=== PATIENT | female | born 1945 | race Caucasian/White ===

== ENCOUNTER 2017-01-31 09:07 | Emergency (ER) | payer OTHER ==
[2017-01-31] MEDS ORDERED: NS 1,000 ML IV ONE (09:31)
[2017-01-31] MEDS ORDERED: ONDANSETRON 4 MG/2 ML VIAL IVP ONE (09:31)
[2017-01-31] MEDS ORDERED: ONDANSETRON 4 MG/2 ML VIAL ONE (09:43)
[2017-01-31 09:53] LABS: COLOR YELLOW; LEUKOCYTE ESTERASE,URINE 1+ (NEGATIVE); NITRITE,URINE NEGATIVE (NEGATIVE)
[2017-01-31 09:56] LABS: MUCUS TRACE /lpf (NONE-1+)
[2017-01-31 09:58] LABS: % IMMATURE GRANULYOCYTES 0.3 % (0.0-1.1); ABSOLUTE IMMATURE GRANULOCYTES 0.05 10^3/uL (0.00-0.10); ADD DIFF? NO; ADD MORPH? NO; ADD SCAN? NO; ATYPICAL LYMPHOCYTE FLAG 20 (0-99); FRAGMENT RBC FLAG 0 (0-99); HEMATOCRIT 46.8 % (38.0-47.0); HEMOGLOBIN 16.4 g/dL (12.6-16.3); LEFT SHIFT FLG 10 (0-99); LIPEMIA HEMOLYSIS FLAG 90 (0-99); MEAN CELL HEMOGLOBIN 32.4 pg (27.9-34.1); MEAN CELL VOLUME 92.5 fL (81.5-99.8); MEAN PLATELET VOLUME 8.9 fL (8.7-11.7); PLATELET CLUMPS FLAG 10 (0-99); PLATELET COUNT 242 10^3/uL (150-400); RED BLOOD CELL COUNT 5.06 10^6/uL (4.18-5.33)
--- NOTE | 2017-01-31 10:20 | EDPHY ---
H & P Stated Complaint: Abd pain x 1 wk;lab yesterday w/elevated WBC; sent for CT HPI/ROS: CHIEF COMPLAINT: Abdominal pain HISTORY OF PRESENT ILLNESS: Patient complains of 1 week history of abdominal pain. This started in the epigastrium and has now settled in the lower abdomen. Moderate to severe pain. Colicky pain. Does not radiate. Some nausea and anorexia. No vomiting. No diarrhea constipation. No flank pain. No fever chills. Laboratory studies drawn yesterday by her primary care physician returned today. She was contacted by the PA Sammi Martines and instructed to come to the emergency department due to leukocytosis and the recommendation of CT scan. She has a history of diverticulosis but not diverticulitis. No other associated complaints or modifying factors. PREVIOUS ABDOMINAL SURGERIES/DIAGNOSES: Diverticulosis, UTIs NPO: Last night REVIEW OF SYSTEMS: Ten systems reviewed and are negative unless otherwise noted in the HPI EXAMINATION: General Appearance: Alert, no distress Head: normocephalic, atraumatic Eyes: Pupils equal and round, no conjunctival pallor or injection ENT, Mouth: Mucous membranes moist. Uvula midline. Neck: Normal inspection, supple, non-tender Respiratory: Lungs are clear to auscultation Cardiovascular: Regular rate and rhythm Gastrointestinal: Obese abdomen. Tenderness in the lower quadrants. No point tenderness. No tympany. No rigidity. Non-acute abdomen. Back: non-tender, no bony abnormalities Neurological: A&O, nonfocal, normal gait Skin: Warm and dry, no rash Extremities: Nontender, no pedal edema Psychiatric: Mood and affect normal DIFFERENTIAL DIAGNOSES: Including but not limited to gastritis, diverticulitis, colitis, appendicitis, cystitis, UTI, diverticulosis, mesenteric adenitis MDM: 9:34 a.m. Lower abdominal pain with guarding in the suprapubic region. She had laboratory studies drawn yesterday for her week-long pain with leukocytosis. Her PA from her primary care office sent her here for CT scan. She reports an allergy to IV contrast, thus I ordered this without contrast. Vital signs are stable. 10:29 a.m. Notified by radiologist Dr. Heath. There is acute diverticulitis without perforation or abscess. No other acute findings other than degenerative arthritic changes of the right hip. 10:38 a.m. I discussed the findings with the patient. She is feeling much better at this time. I also discussed the findings with the patient's PA, Sammi Martines. She informed me that she actually had instructed the patient to present to the Imaging Department and not the emergency department. She informed that she would be happy to follow up on the patient tomorrow and arrange for her to be seen on Thursday in the clinic. 10:45 a.m. She remains vital signs stable and afebrile. We discussed admission the hospital for IV antibiotics versus discharge home. She wants to be discharged home. I do feel she is stable for discharge home with outpatient management. We discussed the risks and benefits, including the possibility of failure of outpatient management. She is comfortable with this risk and discharged home stable condition. 11:15 a.m. After printing discharge medications, RN notified me that the patient was not comfortable taking Cipro. I discussed this with the patient and she expressed that due to the research she has done in the medical literature she did not want to take the ciprofloxacin. I informed her that we could choose the second- line therapy for her. We discussed the risks and benefits of doing so, including the risk of palpation failure. We she is comfortable with him these risks, and I switched her prescription to Augmentin ER 1000 mg twice daily for 10 days. ED Precautions: Worsening pain. Fever. Bloody stools. Bloody emesis. Constipation or diarrhea. SUPERVISION: This patient was independently evaluated without direct examination by the attending physician. Case was discussed with attending physician. Case discussed with Dr. Ahumada Source: Patient, Old records Exam Limitations: No limitations - Personal History Current Tetanus Diphtheria and Acellular Pertussis (TDAP): Yes - Medical/Surgical History Other PMH: HTN. DANE. arthritis. diverticulitis - Social History Smoking Status: Never smoked Constitutional: Initial Vital Signs Temperature (C) 99.1 F 01/31/17 09:10 Heart Rate 79 01/31/17 09:10 Respiratory Rate 18 01/31/17 09:10 Blood Pressure 159/72 H 01/31/17 09:10 O2 Sat (%) 95 01/31/17 09:10 O2 Delivery Mode Room Air Allergies/Adverse Reactions: Iodine and Iodide Containing Produc Allergy (Verified 01/31/17 10:03) Home Medications: Medication Instructions Recorded Acyclovir [Zovirax 400 mg (*)] 400 mg PO BID 01/31/17 Amox Tr/Potassium Clavulanate 1 each PO BID #20 tab 01/31/17 [Augmentin 1000MG ER Tablet (*)] Ciprofloxacin [Cipro] 500 mg PO BID #20 tab 01/31/17 Fluconazole 150 mg PO AD PRN #2 tablet 01/31/17 Losartan Potassium [Cozaar 50 mg 50 mg PO 01/31/17 (*)] Naturethroid 01/31/17 metroNIDAZOLE [Flagyl 500 mg (*)] 500 mg PO BID #20 tab 01/31/17 traMADol [Ultram 50 mg (*)] 50 mg PO Q4 PRN #15 tab 01/31/17 Medical Decision Making - Diagnostics Imaging Results: Imaging Impressions Abdomen/Pelvis CT 01/31/17 09:32 Impression: 1. Diverticulitis mid sigmoid colon without evidence of peridiverticular abscess. 2. Bands of subsegmental atelectasis versus fibrotic streaks at the left base. 3. Incidental small cyst right lobe liver inferolaterally. 4. Moderate to marked degenerative changes right hip. Findings discussed with Reji Mosquera PAC at 10:29 hour, 01/31/2017. - Data Points Laboratory Results: Laboratory Results 01/31/17 09:50 01/31/17 09:50 01/31/17 01/31/17 01/31/17 09:50 09:50 09:35 WBC 15.45 10^3/uL H 10^3/uL (3.80-9.50) RBC 5.06 10^6/uL 10^6/uL (4.18-5.33) Hgb 16.4 g/dL H g/dL (12.6-16.3) Hct 46.8 % % (38.0-47.0) MCV 92.5 fL fL (81.5-99.8) MCH 32.4 pg pg (27.9-34.1) MCHC 35.0 g/dL g/dL (32.4-36.7) RDW 12.0 % % (11.5-15.2) Plt Count 242 10^3/uL 10^3/uL (150-400) MPV 8.9 fL fL (8.7-11.7) Neut % (Auto) 77.4 % H % (39.3-74.2) Lymph % (Auto) 15.1 % % (15.0-45.0) [place] % (Auto) 6.7 % % (4.5-13.0) Eos % (Auto) 0.2 % L % (0.6-7.6) Baso % (Auto) 0.3 % % (0.3-1.7) Nucleat RBC Rel Count 0.0 % % (0.0-0.2) Absolute Neuts (auto) 11.97 10^3/uL H 10^3/uL (1.70-6.50) Absolute Lymphs (auto) 2.33 10^3/uL 10^3/uL (1.00-3.00) Absolute Monos (auto) 1.03 10^3/uL H 10^3/uL (0.30-0.80) Absolute Eos (auto) 0.03 10^3/uL 10^3/uL (0.03-0.40) Absolute Basos (auto) 0.04 10^3/uL 10^3/uL (0.02-0.10) Absolute Nucleated RBC 0.00 10^3/uL 10^3/uL (0-0.01) Immature Gran % 0.3 % % (0.0-1.1) Immature Gran # 0.05 10^3/uL 10^3/uL (0.00-0.10) Sodium 139 mEq/L mEq/L (134-144) Potassium 4.3 mEq/L mEq/L (3.5-5.2) Chloride 103 mEq/L mEq/L (97-110) Carbon Dioxide 24 mEq/l mEq/l (22-31) Anion Gap 12 mEq/L mEq/L (8-16) BUN 15 mg/dL mg/dL (7-23) Creatinine 0.8 mg/dL mg/dL (0.6-1.0) Estimated GFR > 60 Glucose 137 mg/dL H mg/dL (70-100) Calcium 9.4 mg/dL mg/dL (8.5-10.4) Lipase 45.0 IU/L IU/L (23-300) Urine Color YELLOW Urine Appearance HAZY Urine pH 7.0 (5.0-7.5) Ur Specific [place] 1.020 (1.002-1.030) Urine Protein NEGATIVE (NEGATIVE) Urine Ketones NEGATIVE (NEGATIVE) Urine Blood NEGATIVE (NEGATIVE) Urine Nitrate NEGATIVE (NEGATIVE) Urine Bilirubin NEGATIVE (NEGATIVE) Urine Urobilinogen NEGATIVE EU EU (0.2-1.0) Ur Leukocyte Esterase 1+ H (NEGATIVE) Urine RBC 1-3 /hpf /hpf (0-3) Urine WBC 5-10 /hpf H /hpf (0-3) Ur Epithelial Cells TRACE /lpf /lpf (NONE-1+) Urine Mucus TRACE /lpf /lpf (NONE-1+) Urine Glucose NEGATIVE (NEGATIVE) Medications Given: Discontinued Medications Sodium Chloride (Ns) 1,000 mls @ 0 mls/hr IV ONCE ONE PRN Reason: Wide Open Stop: 01/31/17 09:32 Last Admin: 01/31/17 09:31 Dose: 1,000 mls Morphine Sulfate (Morphine) 4 mg IVP EDNOW ONE Stop: 01/31/17 09:32 Last Admin: 01/31/17 09:41 Dose: Not Given Ondansetron HCl (Zofran) 4 mg IVP EDNOW ONE Stop: 01/31/17 09:32 Last Admin: 01/31/17 09:31 Dose: 4 mg Departure - Departure Disposition: Home, Routine, Self-Care Clinical Impression: Sigmoid diverticulitis Abdominal pain Qualifiers: Abdominal location: lower abdomen, unspecified Qualified Code(s): R10.30 - Lower abdominal pain, unspecified Leukocytosis Qualifiers: Leukocytosis type: unspecified Qualified Code(s): D72.829 - Elevated white blood cell count, unspecified Condition: Good Instructions: Diverticulitis (ED), Diverticulitis Diet (ED) Additional Instructions: 1. Antibiotics as discussed 2. Pain medication as needed as discussed 3. Follow up with primary care physician on Thursday 4. Return to the ER for worsening pain, fever, bloody stools or vomiting Referrals: Sammi Martines NP [Primary Care Provider] - As per Instructions Prescriptions: Amox Tr/Potassium Clavulanate [Augmentin 1000MG ER Tablet (*)] 1 each PO BID # 20 tab Ciprofloxacin [Cipro] 500 mg PO BID #20 tab Fluconazole 150 mg PO AD PRN #2 tablet PRN Reason: Itching metroNIDAZOLE [Flagyl 500 mg (*)] 500 mg PO BID #20 tab traMADol [Ultram 50 mg (*)] 50 mg PO Q4 PRN #15 tab PRN Reason: Pain, Mild
[2017-01-31 10:23] LABS: ANION GAP 12 mEq/L (8-16); CALCIUM 9.4 mg/dL (8.5-10.4); CARBON DIOXIDE 24 mEq/l (22-31); CHLORIDE 103 mEq/L (97-110); CREATININE 0.8 mg/dL (0.6-1.0); GLOMERULAR FILTRATION RATE > 60; GLUCOSE 137 mg/dL (70-100); POTASSIUM 4.3 mEq/L (3.5-5.2); SODIUM 139 mEq/L (134-144)
[2017-01-31 10:49] VITALS: BP 152/78; PULSE 78; RESP 16; TEMP 99.3; O2SAT 91
== END 2017-01-31 11:25 | disposition home or self-care (01) ==
DX: K57.32 Diverticulitis of large intestine without perforation or abscess without bleeding (principal); D72.829 Elevated white blood cell count, unspecified; I10 Essential (primary) hypertension
CPT/HCPCS: 74176; 96374; 99285; J2405

== ENCOUNTER → 2017-06-15 | Outpatient (CLI) | payer OTHER | LOC: FIMAGING 15:40 | PROVIDERS: ATTEND Family Medicine | DX: M25.551 Pain in right hip (principal); G89.29 Other chronic pain; M15.9 Polyosteoarthritis, unspecified ==

== ENCOUNTER 2017-11-07 12:19 | Inpatient (IN) | payer OTHER ==
[2017-11-07] MEDS ORDERED: NS 1,000 ML IV ONE (12:28)
[2017-11-07] MEDS ORDERED: methylPREDNISolone SOD SUCC 125 MG/2 ML VIAL IVP ONE ×2 (12:28→20:15)
[2017-11-07] MEDS ORDERED: RANITIDINE 50 MG/2 ML VIAL IVP ONE (12:28)
--- NOTE | 2017-11-07 12:30 | EDPHY ---
H & P Time Seen by Provider: 11/07/17 12:24 HPI/ROS: CHIEF COMPLAINT: Itchy and tongue swelling HISTORY OF PRESENT ILLNESS: Patient took 100 mg Celebrex this morning for chronic right hip pain. She also is on losartan for high blood pressure. At 11 :00 a.m. she noticed itching and both sides of her lower abdomen near the iliac crest. At noon she noticed her tongue swelling and presents with both symptoms. Symptoms moderate to severe. Not associated with abdominal pain or vomiting or wheezing. Not better worse with bending. REVIEW OF SYSTEMS: Eye: no change in vision ENT: Tongue swelling but no sore throat or dental pain Cardiac: no chest pain or syncope Pulmonary: no cough or SOB, no wheezing Abdomen: no vomiting, diarrhea, abdominal pain Musculoskeletal: no back pain Skin: Urticaria both sides of her lower abdomen Neuro: no headache Constitutional: no fever : no urinary symptoms A comprehensive 10 point review of systems is otherwise negative aside from elements mentioned in the history of present illness. PAST MEDICAL HISTORY: Includes asthma and hypertension, sleep apnea, arthritis. Social history: nonsmoker. General Appearance: Alert and conversant, cooperative. Eyes: No scleral icterus. ENT, Mouth: Angioedema with enlarged tongue but no stridor or drooling and no trismus. Respiratory: Normal respiratory effort, breath sounds equal, lungs are clear to auscultation. No wheezing. Cardiovascular: Regular rate and rhythm. Gastrointestinal: Abdomen is soft and non tender. Neurological: Alert, face symmetric, normal motor and sensory in extremities. Skin: Urticaria on both sides of the lower abdomen. Musculoskeletal: No peripheral edema. Psychiatric: Not agitated. Emergency Department course/MDM: Epi 0.3 mL IM, Solu-Medrol 125 mg IV, IV Benadryl 50 mg and IV H2 mick Differential includes but not limited to angioedema from losartan as well as allergic reaction and anaphylaxis. Patient had transient bradycardia down to 30, felt terrible. She had trouble opening her mouth and some stridor and difficulty speaking and was moved to the resuscitation room. Discussed with Viral in OR, asked to call Backup anesthesiologist, called Jose David 1240. 1304: Huey for ENT. 1318: John for Jose. 1400: No stridor or drooling, able to speak in complete sentences. At this point I do not think the patient needs acute surgical airway intervention. She is improving although still has quite swollen tongue. Will be admitted to the hospital for further observation of angioedema. Smoking Status: Never smoked Constitutional: Initial Vital Signs Temperature (C) 36.7 C 11/07/17 12:23 Heart Rate 77 11/07/17 12:23 Respiratory Rate 20 11/07/17 12:23 Blood Pressure 177/89 H 11/07/17 12:23 O2 Sat (%) 94 11/07/17 12:23 O2 Delivery Mode Room Air Allergies/Adverse Reactions: Iodine and Iodide Containing Produc Allergy (Verified 11/07/17 12:23) Home Medications: Medication Instructions Recorded Acyclovir [Zovirax 400 mg (*)] 400 mg PO BID 01/31/17 Fluconazole 150 mg PO AD PRN #2 tablet 01/31/17 Losartan Potassium [Cozaar 50 mg 50 mg PO 01/31/17 (*)] Naturethroid 01/31/17 metroNIDAZOLE [Flagyl 500 mg (*)] 500 mg PO BID #20 tab 01/31/17 traMADol [Ultram 50 mg (*)] 50 mg PO Q4 PRN #15 tab 01/31/17 Medical Decision Making - Diagnostics EKG Interpretation: 12-lead EKG interpreted by me; official reading is in trace master. My interpretation is sinus rhythm with left atrial abnormality rate 58 with late anterior RS, possible old anteroseptal infarct. Differential Diagnosis: Differential includes but not limited to ENT infection, angioedema, drug reaction, acute anaphylaxis. Critical Care Time: Critical care time spent by me, Dr. Navas, exclusively with the care of this patient was 35 minutes, exclusive of PA or EQUAL OPPORTUNITY COUNSELOR time and exclusive of separate procedures. The organ system at risk was airway and I ordered epinephrine, steroids, antihistamines, consultation with ENT and Anesthesiology, serial examinations and supplemental oxygen; to stabilize the patient and prevent worsening of the patient's condition. - Data Points Laboratory Results: Laboratory Results 11/07/17 12:20 11/07/17 12:20 11/07/17 11/07/17 12:20 12:20 WBC 12.73 10^3/uL H 10^3/uL (3.80-9.50) RBC 5.25 10^6/uL 10^6/uL (4.18-5.33) Hgb 17.6 g/dL H g/dL (12.6-16.3) Hct 49.7 % H % (38.0-47.0) MCV 94.7 fL fL (81.5-99.8) MCH 33.5 pg pg (27.9-34.1) MCHC 35.4 g/dL g/dL (32.4-36.7) RDW 12.2 % % (11.5-15.2) Plt Count 247 10^3/uL 10^3/uL (150-400) MPV 9.7 fL fL (8.7-11.7) Neut % (Auto) 62.2 % % (39.3-74.2) Lymph % (Auto) 29.7 % % (15.0-45.0) [place] % (Auto) 6.7 % % (4.5-13.0) Eos % (Auto) 0.8 % % (0.6-7.6) Baso % (Auto) 0.4 % % (0.3-1.7) Nucleat RBC Rel Count 0.0 % % (0.0-0.2) Absolute Neuts (auto) 7.92 10^3/uL H 10^3/uL (1.70-6.50) Absolute Lymphs (auto) 3.78 10^3/uL H 10^3/uL (1.00-3.00) Absolute Monos (auto) 0.85 10^3/uL H 10^3/uL (0.30-0.80) Absolute Eos (auto) 0.10 10^3/uL 10^3/uL (0.03-0.40) Absolute Basos (auto) 0.05 10^3/uL 10^3/uL (0.02-0.10) Absolute Nucleated RBC 0.00 10^3/uL 10^3/uL (0-0.01) Immature Gran % 0.2 % % (0.0-1.1) Immature Gran # 0.03 10^3/uL 10^3/uL (0.00-0.10) Sodium 140 mEq/L mEq/L (135-145) Potassium 4.6 mEq/L mEq/L (3.5-5.2) Chloride 104 mEq/L mEq/L (97-110) Carbon Dioxide 22 mEq/l mEq/l (22-31) Anion Gap 14 mEq/L mEq/L (8-16) BUN 20 mg/dL mg/dL (7-23) Creatinine 0.9 mg/dL mg/dL (0.6-1.0) Estimated GFR > 60 Glucose 111 mg/dL H mg/dL (70-100) Calcium 9.6 mg/dL mg/dL (8.5-10.4) Medications Given: Discontinued Medications Diphenhydramine HCl (Benadryl Injection) 50 mg IVP EDNOW ONE Stop: 11/07/17 12:29 Last Admin: 11/07/17 12:34 Dose: 50 mg Epinephrine HCl (Epinephrine) 0.3 mg IM EDNOW ONE Stop: 11/07/17 12:29 Last Admin: 11/07/17 12:34 Dose: 0.3 mg Sodium Chloride (Ns) 1,000 mls @ 0 mls/hr IV ONCE ONE; Wide Open PRN Reason: Protocol Stop: 11/07/17 12:29 Last Admin: 11/07/17 12:36 Dose: 1,000 mls Methylprednisolone Sodium Succinate (Solu-Medrol) 125 mg IVP EDNOW ONE Stop: 11/07/17 12:29 Last Admin: 11/07/17 12:34 Dose: 125 mg Ranitidine HCl (Zantac) 50 mg IVP EDNOW ONE Stop: 11/07/17 12:29 Last Admin: 11/07/17 12:35 Dose: 50 mg Departure - Departure Disposition: [facility] Clinical Impression: Angioedema Qualifiers: Encounter type: initial encounter Qualified Code(s): T78.3XXA - Angioneurotic edema, initial encounter Condition: Serious
[2017-11-07 12:47] LABS: PLATELET COUNT 247 10^3/uL (150-400)
--- NOTE | 2017-11-07 12:47 | CPEKG ---
Heart Rate: 58 RR Interval: 1034 P-R Interval: 168 QRSD Interval: 90 QT Interval: 452 QTC Interval: 445 P [place]: 68 QRS [place]: 5 T Wave [place]: 43 EKG Severity - ABNORMAL ECG - EKG Impression: SINUS RHYTHM EKG Impression: PROBABLE LEFT ATRIAL ABNORMALITY EKG Impression: CONSIDER ANTEROSEPTAL INFARCT Electronically Signed By: Jaren Navas 07-Nov-2017 12:49:26
[2017-11-07] MEDS ORDERED: ONDANSETRON 4 MG/2 ML VIAL IVP PRN (14:04)
--- NOTE | 2017-11-07 14:11 | PDGENHP ---
History and Physical - Chief Complaint tongue swelling - History of Present Illness 72yo female with hx of HTN and OA of right hip who recently started Celebrex p/ w abd hives and tongue swelling with rapid onset this afternoon. She was in the shower when she noticed her symptoms and presented to the E.D. In the ED she was given EPi, steroids, Histamine blockers with some improvement. She did not require intubation. Her tongue is still swollen. She is on RA. She does not have any lung involvement. Had transient bradycardia to the 30's in the ER. She has been on Losartan for several years w/o incident She had been feeling well leading up to this event Afebrile, no cp or SOB. No N/v PMHx: Asthma HTN DANE Right hip OA Obesity PSHx: cataracts Soc: no T/E/I FmHx: no pertinent hx Labs: mild leukocytosis, BMP ok. History Information - Allergies/Home Medication List Allergies/Adverse Reactions: Iodine and Iodide Containing Produc Allergy (Verified 11/07/17 12:23) Home Medications: Acyclovir [Zovirax 400 mg (*)] 400 mg PO BID 01/31/17 [Last Taken Unknown] Losartan Potassium [Cozaar 50 mg (*)] 50 mg PO 01/31/17 [Last Taken Unknown] Naturethroid 01/31/17 [Last Taken Unknown] I have personally reviewed and updated: medical history, social history - Social History Smoking Status: Never smoked Review of Systems Review of Systems: ROS: 10pt was reviewed & negative except for what was stated in HPI & below Physical Exam Physical Exam: Temp Pulse Resp BP Pulse Ox 36.7 C 67 18 134/64 H 95 11/07/17 12:23 11/07/17 14:01 11/07/17 14:01 11/07/17 14:01 11/07/17 14:01 Constitutional: no apparent distress, not in pain Eyes: PERRL, EOMI Ears, Nose, Mouth, Throat: moist mucous membranes, hearing normal, other ( tongue swelling L > R) Cardiovascular: regular rate and rhythym, No edema Respiratory: no respiratory distress, no rales or rhonchi Gastrointestinal: normoactive bowel sounds, soft, non-tender abdomen Genitourinary: no bladder fullness Skin: warm Musculoskeletal: full muscle strength Neurologic: AAOx3 Psychiatric: interacting appropriately, not anxious, not encephalopathic, thought process linear Lymph, Heme, Immunologic: No petechiae Lab Data & Imaging Review 11/07/17 12:20 11/07/17 12:20 WBC 12.73 10^3/uL (3.80-9.50) H 11/07/17 12:20 RBC 5.25 10^6/uL (4.18-5.33) 11/07/17 12:20 Hgb 17.6 g/dL (12.6-16.3) H 11/07/17 12:20 Hct 49.7 % (38.0-47.0) H 11/07/17 12:20 MCV 94.7 fL (81.5-99.8) 11/07/17 12:20 MCH 33.5 pg (27.9-34.1) 11/07/17 12:20 MCHC 35.4 g/dL (32.4-36.7) 11/07/17 12:20 RDW 12.2 % (11.5-15.2) 11/07/17 12:20 Plt Count 247 10^3/uL (150-400) 11/07/17 12:20 MPV 9.7 fL (8.7-11.7) 11/07/17 12:20 Neut % (Auto) 62.2 % (39.3-74.2) 11/07/17 12:20 Lymph % (Auto) 29.7 % (15.0-45.0) 11/07/17 12:20 [place] % (Auto) 6.7 % (4.5-13.0) 11/07/17 12:20 Eos % (Auto) 0.8 % (0.6-7.6) 11/07/17 12:20 Baso % (Auto) 0.4 % (0.3-1.7) 11/07/17 12:20 Nucleat RBC Rel Count 0.0 % (0.0-0.2) 11/07/17 12:20 Absolute Neuts (auto) 7.92 10^3/uL (1.70-6.50) H 11/07/17 12:20 Absolute Lymphs (auto) 3.78 10^3/uL (1.00-3.00) H 11/07/17 12:20 Absolute Monos (auto) 0.85 10^3/uL (0.30-0.80) H 11/07/17 12:20 Absolute Eos (auto) 0.10 10^3/uL (0.03-0.40) 11/07/17 12:20 Absolute Basos (auto) 0.05 10^3/uL (0.02-0.10) 11/07/17 12:20 Absolute Nucleated RBC 0.00 10^3/uL (0-0.01) 11/07/17 12:20 Immature Gran % 0.2 % (0.0-1.1) 11/07/17 12:20 Immature Gran # 0.03 10^3/uL (0.00-0.10) 11/07/17 12:20 Sodium 140 mEq/L (135-145) 11/07/17 12:20 Potassium 4.6 mEq/L (3.5-5.2) 11/07/17 12:20 Chloride 104 mEq/L (97-110) 11/07/17 12:20 Carbon Dioxide 22 mEq/l (22-31) 11/07/17 12:20 Anion Gap 14 mEq/L (8-16) 11/07/17 12:20 BUN 20 mg/dL (7-23) 11/07/17 12:20 Creatinine 0.9 mg/dL (0.6-1.0) 11/07/17 12:20 Estimated GFR > 60 11/07/17 12:20 Glucose 111 mg/dL (70-100) H 11/07/17 12:20 Calcium 9.6 mg/dL (8.5-10.4) 11/07/17 12:20 Assessment & Plan Assessment: #Angioedema -Due to Losartan or Celebrex or other? #Leukocytosis, likely reactive #Urticaria #Hx of Asthma #HTN #Transient Bradycardia #OA Plan: Step Down this pt still has a very enlarged tongue and is at risk for decompensation scheduled IV steroids, Benadryl, Zantac Hold Celebrex Hold Losartan Tele cont appropriate home meds once list is available Observation for now pending clinical course SCD's total critical care time spent on this mgm of this pt with angioedema with tongue swelling is 45 mins.
[2017-11-07] MEDS: FAMOTIDINE 20 MG/NACL 50 ML IV SCH ×2 (14:49→22:05)
[2017-11-07] MEDS ORDERED: methylPREDNISolone SOD SUCC 125 MG/2 ML VIAL ONE ×2 (15:16→16:18)
[2017-11-07] MEDS ORDERED: RANITIDINE 50 MG/2 ML VIAL ONE (16:18)
[2017-11-07] MEDS ORDERED: LEVALBUTEROL 1.25 MG/3 ML DEYVIAL IH PRN (16:18)
[2017-11-07] MEDS: ACETAMINOPHEN 500 MG TAB PO PRN (16:58)
[2017-11-07] MEDS ORDERED: methylPREDNISolone SOD SUCC 125 MG/2 ML VIAL IVP SCH (18:00)
--- NOTE | 2017-11-07 18:25 | GCON ---
[f rep st] CONSULTATION PULMONARY CRITICAL CARE CONSULTATION REASON FOR CONSULTATION: Intensive Care Unit evaluation and management of angioedema. HISTORY: The patient is a very pleasant, 72-year-old who had the onset of pruritic lesions associate d with hives and tongue swelling. She was brought to the emergency department by a roommate. She wa s given epinephrine, Benadryl, steroids, and ranitidine with initial improvement. She was having no respiratory compromise. Her swollen tongue did not worsen and has gotten better. She had no stridor . She had no wheezing. She had no hypotension. Apparently, with therapies in the emergency departm ent she had a transient bradycardia to the 30s. Her only new drug is Celebrex. She has been taking this for her hip for the last couple of weeks. S he has not had problems with nonsteroidals in the past. She has been on losartan for a number years without any allergic reactions. She has had hives with sulfa preparations and with iodinated contras t. She was transferred to the intensive care unit. In the ICU, she has normal vital signs and is comfor table. She says her tongue swelling is significantly better. She has a few residual hives underneat h her breasts and on the lower abdomen. PAST MEDICAL HISTORY: Remarkable for systemic hypertension, for which she takes losartan. She is al so on acyclovir. She has degenerative hip disease and is contemplating a total hip replacement in e near future. DRUG ALLERGIES: Iodinated contrast, sulfa, and now presumably Celebrex. SOCIAL HISTORY: The patient is retired. 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 She has been in and out of [place]. Last back about 3 years ago. Alcohol is denied. Tobacco is negative. FAMILY HISTORY: Noncontributory. REVIEW OF SYSTEMS: She has a distant history of asthma. There is also history of sleep apnea. She recently was on some herbal preparations but stopped these a week or 2 ago. PHYSICAL EXAMINATION: GENERAL: A pleasant woman who is sitting comfortably in a chair. She is in n o distress. VITAL SIGNS: Blood pressure is 130/80, heart rate 75 with sinus rhythm on the monitor. Respiratory rate is 16. On room air saturations are 95%. She is afebrile. HEENT: Unremarkable fo r stridor. There is no lymphadenopathy or thyromegaly. The tongue appears to be, perhaps, mildly en larged, but there is no evidence of angioedema at this time. CHEST: Clear bilaterally. There are n o wheezes. Excursions are adequate. HEART: Regular in rate and rhythm without significant murmur. There is no gallop. ABDOMEN: Overweight, but otherwise unremarkable. EXTREMITIES: Without signif icant edema. SKIN: Some hives underneath the breast and over the lower abdominal area underneath he r pants. Some appear to be resolving. A few active hives are present. LABORATORY: White blood cell count is 12,700, hematocrit 49. Platelets are normal. Chemistries are within normal limits. ASSESSMENT: 1. Angioedema. Presumably, this is a drug eruption and presumably secondary to Celebrex. She has b een on no other new medications. She was recently on some herbal preparations, but stopped these a w [place] or 2 ago. She has been on Cozaar for a number years without problems. She does have allergies t o iodinated contrast and sulfa preparations which, in the past, have given her hives as well. 2. History of hypertension. Blood pressure is normal at this time. 3. History of asthma. This is a more distant problem. She has not been on inhalers for a number ye ars. Her angioedema did not result in any wheezing or pulmonary symptoms. She has had tachycardia w ith beta agonists in the past. If needed, some Xopenex could be used. PLAN AND RECOMMENDATIONS: The patient will be observed in the intensive care unit. She is on famoti dine and steroids. Benadryl has been ordered q.6 hours for now. Continues observation in the intens malachi care unit as a step-down patient will be maintained. I anticipate that she will do well. If sta ble on the above medications overnight, these can be decreased/discontinued. If she is doing well, s he may be able to be discharged tomorrow. /[id number]/MODL
--- NOTE | 2017-11-07 20:28 | HOSPPROG ---
Hospitalist Progress Note Assessment/Plan: 65 minutes of total critical care time spent w/ patient, multiple evaluations of patient, coordinating w/ specialist providers and RN, addressing issues below : Called to bedside at 7:35 p.m. for SBP 70s, HR sinus pawan 50-60s, patient feeling lightheaded/glassy eyed in setting of sitting up for bowel movement. - exam revealed AAOX3, appearing uncomfortable, diffuse blanchable confluent rash on neck, anterior chest, face, arms, no upper airway stridor, good air movement bilat rodgers anteriorly, heart RRR w/o MRG, tongue edema w/ posterior pharynx erythema, edematous lips and face - placed in trendelenburg, given solumedrol 125mg IV, and started 1L NS bolus w / appropriate response, SBP 100s, HR 60s sinus on tele - patient reports no improvement in pruritis w/ 25mg benadryl, increase to 50mg q6 scheduled, increased methylpred to 125mg q6 sched, cont famotidine sched IV - cont NS 150/hr, check lactic at 10 p.m. Called back to bedside at 8:30 p.m. for patient feeling like throat swelling, feels like she cannot speak. - exam revealed muffled speech, decline in articulation and phonation since 90 minutes prior, no upper airway stridor, no lower expiratory wheezes, patient more anxious and visibly distressed about how she is feeling, SBP 106 - patient reports IV contrast allergy (hives), so will not pursue CT of neck as it would be of limited utility w/o contrast - d/w Dr. Thompson and Dr. Haas, requested evaluations - SBP dropped to 80-90 when sitting upright for evaluations, placed back in trendelenburg s/p S/p ENT/Anaesthesia evaluations, no e/o upper airway obstruction, chords visible and mobile, some upper airway/sinus secretions present and possible cause of patient's symptoms, + situational anxiety. - requiring ongoing IVF, checking serial lactics o/n, and continuing maximal medical therapy (above) - she remains high-risk of airway complications overnight, Dr. Haas will remain in-house w/ OR available if needed, Dr. Thompson available on-call as well - d/w Dr. Bernal, life agent Objective: Vital Signs Temp Pulse Resp BP Pulse Ox 36.6 C 61 17 143/55 H 92 11/07/17 14:25 11/07/17 16:00 11/07/17 16:00 11/07/17 16:00 11/07/17 16:00 11/06/17 11/07/17 11/08/17 05:59 05:59 05:59 Intake Total 2500 Balance 2500 ICD10 Worksheet Patient Problems: Problems Problem Status Onset Angioedema Acute
[2017-11-07] MEDS ORDERED: LIDOCAINE 2% VISCOUS 15 ML UDCUP ONE (21:11)
[2017-11-07] MEDS ORDERED: LIDOCAINE 2% JELLY 20 ML (UROJECT) ONE (21:12)
[2017-11-07] MEDS ORDERED: RANITIDINE 50 MG/2 ML VIAL IVP SCH (22:00)
[2017-11-07] MEDS: NS 1,000 ML IV SCH (22:06)
[2017-11-08] MEDS: methylPREDNISolone SOD SUCC 125 MG/2 ML VIAL IVP SCH ×4 (02:01→21:05)
[2017-11-08 05:25] LABS: PLATELET COUNT 257 10^3/uL (150-400)
[2017-11-08] MEDS: NS 1,000 ML IV SCH (05:56)
[2017-11-08] MEDS: FAMOTIDINE 20 MG/NACL 50 ML IV SCH ×2 (07:13→15:34)
[2017-11-08] MEDS: ONDANSETRON DISINTEGRATING 4 MG TAB PO PRN ×2 (07:51→14:04)
[2017-11-08] MEDS: ACYCLOVIR 400 MG TAB PO SCH (07:51)
--- NOTE | 2017-11-08 14:04 | PDINTPN ---
Actuarial Science Professor Progress Note Assessment/Plan: Assessment: Angioedema. The cause is unknown. This possibly was related to recent initiation of Celebrex? She does have a history reactions to iodinated contrast and iodine containing substances. She may have had a soup recently containing shellfish? She denies sulfa allergy in the past. Her angioedema does appear to be improving on H1 and H2 blockers and steroids. We can reduce the dosage of these medications. Swelling, hemoconcentration an increased BUN and creatinine. Query possible more generalized vascular leak. Repeat CBC, basic metabolic panel tomorrow. Encourage p.o. intake. Can hold on further IV fluids for now. Plan: Continue present medications but reduce the doses. Follow CBC and BMP. Can transfer to a medical-surgical bed from my standpoint. Discussed with nursing, hospitalist, patient, and the ICU multi disciplinary team. Subjective: Reports some scattered urticarial lesions which come and go. Still has the sensation of some tongue swelling. No shortness of breath, no wheezing, little itching. Objective: Vital Signs Temp Pulse Resp BP Pulse Ox 36.8 C 88 20 114/57 L 92 11/08/17 12:00 11/08/17 12:00 11/08/17 12:00 11/08/17 12:00 11/08/17 12:00 Laboratory Results 11/08/17 05:15 11/08/17 05:15 11/07/17 11/08/17 11/09/17 05:59 05:59 05:59 Intake Total 3456 Balance 3456 Physical Exam - Physical Exam General Appearance: alert, no apparent distress, other (Somewhat puffy appearing regarding James) EENT: PERRL/EOMI, other (Tongue is perhaps slightly enlarge, but difficult to say. No marked swelling.) Neck: normal inspection (No obvious JVD.) Respiratory: lungs clear, No rales, No stridor, No wheezing Cardiac/Chest: regular rate, rhythm Abdomen: normal bowel sounds, non-tender, soft Skin: normal color, warm/dry, rash (Her to care lesions are significantly less today. Only a few are noted: Upper abdomen, right wrist) Extremities: swelling (Hands and face appear puffy) Neuro/Psych: no motor/sensory deficits, No cognition abnormalities ICD10 Worksheet Patient Problems: Problems Problem Status Onset Angioedema Acute
[2017-11-08] MEDS ORDERED: SODIUM CL NASAL 45 ML BTL EACHNARE PRN (14:21)
--- NOTE | 2017-11-08 14:50 | HOSPPROG ---
Hospitalist Progress Note Assessment/Plan: #Angioedema -Due to Losartan or Celebrex or shell fish soup or other? #Leukocytosis, likely reactive #Urticaria #Hx of Asthma #HTN with hypotension overnight -stable bp now #REGGIE, likely due to transient hypotension #Transient Bradycardia #OA Plan: Transfer to [facility] surg decrease steroids, Benadryl, Famotidine Recheck labs in a.m. Hold Celebrex Hold Losartan Tele SCD's Subjective: feels better. no SOB. BP is ok. Objective: Vital Signs Temp Pulse Resp BP Pulse Ox 36.8 C 88 20 114/57 L 92 11/08/17 12:00 11/08/17 12:00 11/08/17 12:00 11/08/17 12:00 11/08/17 12:00 Laboratory Results 11/08/17 05:15 11/08/17 05:15 11/07/17 11/08/17 11/09/17 05:59 05:59 05:59 Intake Total 3456 Balance 3456 - Physical Exam Constitutional: no apparent distress Eyes: PERRL, EOMI Ears, Nose, Mouth, Throat: moist mucous membranes, other (tongue is not swollen) Cardiovascular: regular rate and rhythym, edema (trace) Respiratory: no respiratory distress, no rales or rhonchi Gastrointestinal: normoactive bowel sounds Skin: warm Musculoskeletal: full muscle strength Neurologic: AAOx3 Psychiatric: interacting appropriately, not anxious, not encephalopathic Lymph, Heme, Immunologic: No petechiae ICD10 Worksheet Patient Problems: Problems Problem Status Onset Angioedema Acute
--- NOTE | 2017-11-08 15:22 | PDMN ---
Medical Necessity Medical necessity: C/M review: est. > 2 MN LOS for eval and TX of acute and persistent angioedema (due to Losartan or Celebrex or shell fish soup or other) , leukocytosis - likely reactive, urticarial, hypertension with hypotension overnight 11/07/2017, stable blood pressure now, acute kidney injury, transient bradycardia, requiring planned transfer from SDU to med/surg, recheck labs 09/08, ongoing decrease IV steroids, IV Benadryl, IV Pepcid, hold Losartan, hold Celebrex, comorbid osteoarthritis, history of asthma per 11/08/2017 Hospitalist progress note.
--- NOTE | 2017-11-08 15:31 | ASMTCMCOM ---
CM Note CM Note Notes: Patient is 72 year old female admitted via ED for angioedema/itching/tounge swelling. Per ICU rounds, cause of angioedema is unknown. Patient to transfer to med surg. Patient lives in a condo with a roomate and is likely to discharge home independent when ready. PT eval recommending outpatient PT. CM to follow and available to address discharge needs. CM Plan: Discharge TBD, likely home with outpatient PT. Date Signed: 11/08/2017 03:30 PM Electronically Signed By:Sharron Pearce
[2017-11-08] MEDS: ACETAMINOPHEN 500 MG TAB PO PRN (17:15)
--- NOTE | 2017-11-08 19:42 | PDCONSULT ---
Safety Sealer Note: This 72 year old female with hx of HTN and OA of right hip who recently started Celebrex presented to the ED with hives and tongue swelling with rapid onset on 11/07/16 She was in the shower when she noticed her symptoms and presented to the E.D. In the ED she was given EPi, steroids, Histamine blockers with some improvement. She was previously feeling well. She notes some hoarseness to her voice, she denies dyspnea, chest pain. She notes some pain with swallowing and globus sensation. She is feeling better compared to when she presented to the ED this afternoon. Physical exam: She is alert and oriented. Normocephalic, atraumatic. EOMs intact. Voice is somewhat hoarse, no stidor noted. Mild facial edeam. Oropharynx notable for mild tongue swelling and clear secretions. Laryngoscopy reveals excellent airway. Vocal cords moving well. Hypopharynx clear. BOT clear. No masses or purulence. Rash noted bilateral arms. She is able to move all extremities. Assessment/Plan: 72 year old female with angioedema. Laryngoscopy reveals good airway. Recommend continual airway monitoring and recommendations per hospitalists. This patient was evaluated by Dr. Thompson
[2017-11-09] MEDS: FAMOTIDINE 20 MG/NACL 50 ML IV SCH ×2 (01:58→13:06)
[2017-11-09 03:43] VITALS: RESP 16
[2017-11-09 05:27] LABS: PLATELET COUNT 220 10^3/uL (150-400)
[2017-11-09] MEDS ORDERED: FLUTICASONE NASAL 120 SPRAYS/16 GM MDI EACHNARE SCH (09:00)
[2017-11-09] MEDS: ACYCLOVIR 400 MG TAB PO SCH (09:07)
[2017-11-09] MEDS: ACETAMINOPHEN 500 MG TAB PO PRN (09:07)
[2017-11-09] MEDS: methylPREDNISolone SOD SUCC 125 MG/2 ML VIAL IVP SCH (09:07)
[2017-11-09] MEDS: ONDANSETRON DISINTEGRATING 4 MG TAB PO PRN (09:49)
[2017-11-09 11:55] VITALS: BP 133/54; PULSE 57; TEMP 98.1; O2SAT 96
[2017-11-09] MEDS ORDERED: POLYETHYLENE GLYCOL 3350 17 GM PKT PO SCH (13:00)
[2017-11-09] MEDS ORDERED: MBX SOLN 30 ML BOTTLE PO PRN (13:00)
--- NOTE | 2017-11-09 13:16 | PDDCSUM ---
Discharge Summary Discharge Summary: DISCHARGE DIAGNOSES: -acute angioedema/allergic possible anaphylaxis reaction with tongue swelling hives and abdominal bloating and some hypotension; etiology uncertain -constipation likely caused by Benadryl or angioedema of gut -chronic left hip pain from arthritis CONSULTANTS: Dr. Ber[facility] COURSE SUMMARY: This patient presented to the emergency room with tongue swelling some altered voice and hives. These had a very abrupt onset on the morning of admission. She presented to the hospital with stable vital signs and without wheezing hypoxemia. However early during her assessment she did develop hypotension with blood pressures that got down into the 60s. Treatments have included ongoing high-dose steroid, Benadryl, Pepcid and she did have some epinephrine during the period where she had hypotension on the 1st day. At this time with ongoing steroid Benadryl and Pepcid she still has diffuse itching and some hives diffusely on her skin which are minor. There has been no evidence of any blistering or desquamation or other more serious skin involvement. She has had no eye involvement and no oral ulcerations visible though she describes some minor discomfort under her tongue. Her respirations of remains stable. Her tongue swelling is resolved and she has her normal voice and there has been no stridor. The patient reports a history of iodine allergy in the past. The patient had started taking Celebrex for hip pain about a week before this onset of symptoms. She did take a Celebrex tablet on the morning of her admission. This is a new medicine for her. In addition the patient has been taking Cozaar for hypertension for a few years but so far has tolerated that well to this point. She did not eat any new foods for her. At this time with ongoing symptoms she will need ongoing treatment with multiple allergy treatment medications. I recommended that she continue here in the hospital for this treatment. The patient is unwilling to continue treatment here and is not going to change her mind about that at this point. I have reviewed with the patient that it is possible that she has gut edema interfering with absorption of her medications and that further with changed from IV to oral medicines her symptoms could get worse again. She is aware that she did have hypotension and that this is a a potentially very threatening episode and also that without knowing for sure for what caused this episode there is no way to predict how long this will go on. She is still unwilling to stay here for further oral therapy. Since she is going home I recommended that she continue with high-dose prednisone Benadryl and Pepcid on a regular schedule. I reviewed warning symptoms of recurring or worsening allergy reaction for which she should return to the ER. Also I have given her a prescription for some epinephrine to inject if she does have anaphylactic type symptoms at home now or in the future. PENDING TEST RESULTS: None MEDICATION CHANGES: Stop Cozaar and stop Celebrex Prednisone 60 mg twice daily Benadryl and Pepcid on regular scheduled dosing as well FOLLOW-UP PLAN: She has an appointment later this week to see her primary care physician Dr. Krause and she will keep that appointment Greater than 35 minutes bedside and care coordination time today
== END 2017-11-09 14:15 | disposition home or self-care (01) | DRG 916 ==
LOC: INTOOBSV 13:22 → F2N 14:14 → OBSVTOIN 11-08 15:03
PROVIDERS: ADMIT Family Medicine; ATTEND Internal Medicine
PROC: 0CJS8ZZ Inspection of Larynx, Via Natural or Artificial Opening Endoscopic (ICD-10-PCS; principal; 2017-11-08)
DX: T78.3XXA Angioneurotic edema, initial encounter (principal); M25.551 Pain in right hip; R00.1 Bradycardia, unspecified; I95.9 Hypotension, unspecified; I10 Essential (primary) hypertension; J45.909 Unspecified asthma, uncomplicated; G47.30 Sleep apnea, unspecified; M19.90 Unspecified osteoarthritis, unspecified site; K59.00 Constipation, unspecified; E66.9 Obesity, unspecified
CPT/HCPCS: 96374; 97161-GP; G0378; G8978-GP-CI; G8979-GP-CI; G8980-GP-CI; J0171; J1200; J2780; J2930

== ENCOUNTER 2018-01-17 20:21 | Emergency (ER) | payer OTHER ==
--- NOTE | 2018-01-17 20:44 | EDPHY ---
H & P Stated Complaint: R hip replacement 4.18, c/o bilat LE swelling Time Seen by Provider: 01/17/18 20:33 HPI/ROS: CHIEF COMPLAINT: Bilateral lower extremity swelling HISTORY OF PRESENT ILLNESS: The patient presents to the ED with complaints of bilateral lower extremity swelling. The patient reportedly recently underwent hip replacement at [facility] surgery performed by Dr. Jonathon Dotson. She was discharged home but returns the same day to our ED secondary to concerns about her ongoing edema and difficulty ambulating secondary to her swelling. REVIEW OF SYSTEMS: A comprehensive 10 point review of systems is otherwise negative aside from elements mentioned in the history of present illness. Source: Patient, Family - Medical/Surgical History Hx Asthma: Yes Hx Chronic Respiratory Disease: No Hx Diabetes: No Hx Cardiac Disease: Yes Hx Renal Disease: No Hx Cirrhosis: No Hx Alcoholism: No Hx HIV/AIDS: No Hx Splenectomy or Spleen Trauma: No Other PMH: HTN, arthritis, asthma, diverticulitis, shingles, R hip replacement, tubal ligation, L elbow replace - Social History Smoking Status: Never smoked - Physical Exam Exam: General Appearance: Alert, no distress Eyes: Pupils equal and round no pallor or injection ENT, Mouth: Mucous membranes moist Respiratory: There are no retractions, lungs are clear to auscultation Cardiovascular: Regular rate and rhythm Gastrointestinal: Abdomen is soft and nontender, no masses, bowel sounds normal Neurological: 5/5 strength bilateral lower extremities Skin: Surgical incision is clean dry and intact Musculoskeletal: Neck is supple nontender Extremities: 2+ pitting edema bilaterally Constitutional: Initial Vital Signs Temperature (C) 37.4 C 01/17/18 20:25 Heart Rate 65 01/17/18 20:25 Respiratory Rate 18 01/17/18 20:25 Blood Pressure 188/83 H 01/17/18 20:25 O2 Sat (%) 92 01/17/18 20:25 O2 Delivery Mode Room Air Allergies/Adverse Reactions: celecoxib [From Celebrex] Allergy (Verified 01/17/18 20:34) epinephrine Allergy (Verified 01/17/18 20:34) Iodine and Iodide Containing Produc Allergy (Verified 11/07/17 12:23) latex Allergy (Verified 01/17/18 20:34) losartan Allergy (Verified 01/17/18 20:34) prednisone Allergy (Verified 01/17/18 20:34) soy Allergy (Verified 01/17/18 20:34) Sulfa (Sulfonamide Antibiotics) Allergy (Verified 01/17/18 20:34) tramadol Allergy (Verified 01/17/18 20:34) opiates Allergy (Uncoded 01/17/18 20:34) Home Medications: Medication Instructions Recorded Acyclovir [Zovirax 400 mg (*)] 400 mg PO DAILY 01/31/17 Naturethroid 1 cap PO DAILY 01/31/17 Naltrexone (Compounded) 1.5 mg PO HS 11/07/17 EPINEPHrine [Epipen 0.3 MG] 0.3 mg IM ONCE #2 syr 11/09/17 Famotidine [Pepcid 20 MG (*)] 20 mg PO BID #1 11/09/17 Mbx Soln;Maalox/Diphen/Lido 5 ml PO PRN PRN bottle 11/09/17 [Maalox/Diphenhydramine/Lido] Mbx Soln;Maalox/Diphen/Lido 5 ml PO PRN PRN #1 ml 11/09/17 [Maalox/Diphenhydramine/Lido] Ondansetron Odt [Zofran Odt 4 mg 4 mg PO Q4HRS PRN #15 tab 11/09/17 (*)] Polyethylene Glycol 3350 [Miralax 17 gm PO DAILY pkt 11/09/17 17 gm (*)] Polyethylene Glycol 3350 [Miralax 17 gm PO DAILY #10 pkt 11/09/17 17 gm (*)] diphenhydrAMINE [Benadryl 25 MG 25 mg PO Q6 #1 tab 11/09/17 (*)] predniSONE 3 tab PO BID #30 tab 11/09/17 Furosemide [Lasix 20 MG (*)] 20 mg PO DAILY #5 tab 01/17/18 Medical Decision Making - Diagnostics EKG Interpretation: EKG: Complete interpretation has been separately recorded in the [facility] archive. Summary impression: Sinus rhythm, rate 60 Imaging Results: Imaging Impressions Chest X-Ray 01/17/18 20:58 Impression: Chronic cardiomegaly with mild pulmonary venous hypertension, but without evidence for cardiac decompensation.? Fluid overloading. ED Course/Re-evaluation: I consulted with the patient's primary orthopedic surgeon Dr. Jonathon Dotson. He informed me the patient did have a hypotensive episode during her hospitalization which resulted in her getting a fair amount of IV fluids. This is likely the source of her pedal edema. The patient was not discharged home with any Lasix. The patient had an IV established. She did receive IV Lasix in the emergency department. Screening laboratory studies have been sent. Chest x-ray demonstrates no evidence of pulmonary edema. She does have chronic cardiomegaly. With this point time there is no evidence of overt heart failure. I do think it is reasonable to start the patient on a small dose of Lasix for the next 4 days. She undoubtedly is having peripheral edema secondary to 3rd spacing. Differential Diagnosis: Differential diagnosis considered includes congestive heart failure, volume overload, arrhythmia, hypertensive emergency, DVT - Data Points Laboratory Results: Laboratory Results 01/17/18 21:00 01/17/18 21:00 01/17/18 01/17/18 21:00 21:00 WBC 6.45 10^3/uL 10^3/uL (3.80-9.50) RBC 3.18 10^6/uL L 10^6/uL (4.18-5.33) Hgb 10.6 g/dL L g/dL (12.6-16.3) Hct 31.1 % L % (38.0-47.0) MCV 97.8 fL fL (81.5-99.8) MCH 33.3 pg pg (27.9-34.1) MCHC 34.1 g/dL g/dL (32.4-36.7) RDW 12.6 % % (11.5-15.2) Plt Count 190 10^3/uL 10^3/uL (150-400) MPV 9.4 fL fL (8.7-11.7) Neut % (Auto) 45.7 % % (39.3-74.2) Lymph % (Auto) 40.3 % % (15.0-45.0) Mcleod % (Auto) 9.8 % % (4.5-13.0) Eos % (Auto) 3.4 % % (0.6-7.6) Baso % (Auto) 0.3 % % (0.3-1.7) Nucleat RBC Rel Count 0.0 % % (0.0-0.2) Absolute Neuts (auto) 2.95 10^3/uL 10^3/uL (1.70-6.50) Absolute Lymphs (auto) 2.60 10^3/uL 10^3/uL (1.00-3.00) Absolute Monos (auto) 0.63 10^3/uL 10^3/uL (0.30-0.80) Absolute Eos (auto) 0.22 10^3/uL 10^3/uL (0.03-0.40) Absolute Basos (auto) 0.02 10^3/uL 10^3/uL (0.02-0.10) Absolute Nucleated RBC 0.00 10^3/uL 10^3/uL (0-0.01) Immature Gran % 0.5 % % (0.0-1.1) Immature Gran # 0.03 10^3/uL 10^3/uL (0.00-0.10) Sodium 139 mEq/L mEq/L (135-145) Potassium 4.5 mEq/L mEq/L (3.5-5.2) Chloride 104 mEq/L mEq/L (97-110) Carbon Dioxide 28 mEq/l mEq/l (22-31) Anion Gap 7 mEq/L L mEq/L (8-16) BUN 20 mg/dL mg/dL (7-23) Creatinine 0.8 mg/dL mg/dL (0.6-1.0) Estimated GFR > 60 Glucose 77 mg/dL mg/dL (70-100) Calcium 8.6 mg/dL mg/dL (8.5-10.4) NT-Pro-B Natriuret Pep 895 pg/mL H pg/mL (0-125) Medications Given: Discontinued Medications Furosemide (Lasix Injection) 20 mg IVP EDNOW ONE Stop: 01/17/18 20:48 Last Admin: 01/17/18 21:10 Dose: 20 mg Departure - Departure Disposition: Home, Routine, Self-Care Clinical Impression: Peripheral edema Condition: Good Instructions: Leg Edema (ED) Additional Instructions: 1. Please begin Lasix as prescribed for your leg edema for the next 5 days. 2. Please schedule a follow-up appointment with Dr. Krause 3. I do recommend milk of magnesia for your constipation. 4. I recommend discontinuing narcotics as you have done. Referrals: Lilly Krause MD [Primary Care Provider] - As per Instructions Prescriptions: Furosemide [Lasix 20 MG (*)] 20 mg PO DAILY #5 tab
[2018-01-17] MEDS ORDERED: FUROSEMIDE 20 MG/2 ML VIAL IVP ONE (20:47)
[2018-01-17 21:07] LABS: PLATELET COUNT 190 10^3/uL (150-400)
--- NOTE | 2018-01-17 21:07 | CPEKG ---
Heart Rate: 60 RR Interval: 1000 P-R Interval: 152 QRSD Interval: 84 QT Interval: 428 QTC Interval: 428 P [place]: 36 QRS [place]: 21 T Wave [place]: 33 EKG Severity - ABNORMAL ECG - EKG Impression: SINUS RHYTHM Electronically Signed By: Jermain Ahumada 17-Jan-2018 21:09:33
[2018-01-17 22:10] VITALS: BP 158/67
== END 2018-01-17 22:09 | disposition home or self-care (01) ==
DX: M96.89 Other intraoperative and postprocedural complications and disorders of the musculoskeletal system (principal); J45.909 Unspecified asthma, uncomplicated; I10 Essential (primary) hypertension; Z91.040 Latex allergy status
CPT/HCPCS: 71046; 93005; 96374; 99285; J1940